=== PATIENT | male | born 1990 | race Caucasian/White ===

== ENCOUNTER 2023-12-28 13:01 | Emergency (ER) | payer OTHER, SELFPAY ==
--- NOTE | ~2023-12-28 | XR_ITS ---
X-RAY LEFT SHOULDER AND LEFT SCAPULA CLINICAL HISTORY: Pain, injury, fall. COMPARISON: No relevant prior studies are available for comparison. TECHNIQUE: 3 views of the left shoulder and one view of the left scapula. FINDINGS: Minimally displaced fracture of the greater tuberosity of the left humeral head with overlying soft tissue swelling and a small joint effusion. No additional fractures. No dislocation. No unexpected radiopaque foreign bodies. XR/XR shoulder LT min 2V IMPRESSION: Minimally displaced fracture of the greater tuberosity of the left humeral head.
--- NOTE | ~2023-12-28 | XR_ITS ---
EXAMINATION: XR ELBOW, LEFT CLINICAL INFORMATION: History of humerus fracture at the shoulder. COMPARISON: No comparison available imaging TECHNIQUE: AP, lateral, and oblique views of the left elbow. FINDINGS: The bones and soft tissues are normal. No fracture or joint effusion. Alignment is anatomic. Joint spaces are maintained. XR/XR elbow LT min 3V IMPRESSION: Normal left elbow.
--- NOTE | ~2023-12-28 | XR_ITS ---
X-RAY LEFT ANKLE AND LEFT FOOT CLINICAL HISTORY: Pain, injury, fall. COMPARISON: No relevant prior studies are available for comparison. TECHNIQUE: 3 views of the left ankle and 3 views of the left foot. FINDINGS: Left ankle: Mildly displaced fracture of the distal fibula/lateral malleolus. Small ossific fragments adjacent to the lateral surface of the talus on the frontal view. Soft tissue swelling. No unexpected radiopaque foreign bodies. Left foot: No fractures or subluxation. No significant soft tissue abnormality. XR/XR foot LT min 3V IMPRESSION: 1. Mildly displaced fracture of the distal fibula/lateral malleolus. 2. Small ossific fragments adjacent to the lateral surface of the talus on the frontal view could represent avulsion fractures. Further characterization with CT of the left ankle without IV contrast could be obtained.
--- NOTE | ~2023-12-28 | XR_ITS ---
X-RAY LEFT SHOULDER AND LEFT SCAPULA CLINICAL HISTORY: Pain, injury, fall. COMPARISON: No relevant prior studies are available for comparison. TECHNIQUE: 3 views of the left shoulder and one view of the left scapula. FINDINGS: Minimally displaced fracture of the greater tuberosity of the left humeral head with overlying soft tissue swelling and a small joint effusion. No additional fractures. No dislocation. No unexpected radiopaque foreign bodies. XR/XR scapula LT IMPRESSION: Minimally displaced fracture of the greater tuberosity of the left humeral head.
--- NOTE | ~2023-12-28 | XR_ITS ---
X-RAY LEFT ANKLE AND LEFT FOOT CLINICAL HISTORY: Pain, injury, fall. COMPARISON: No relevant prior studies are available for comparison. TECHNIQUE: 3 views of the left ankle and 3 views of the left foot. FINDINGS: Left ankle: Mildly displaced fracture of the distal fibula/lateral malleolus. Small ossific fragments adjacent to the lateral surface of the talus on the frontal view. Soft tissue swelling. No unexpected radiopaque foreign bodies. Left foot: No fractures or subluxation. No significant soft tissue abnormality. XR/XR ankle LT min 3V IMPRESSION: 1. Mildly displaced fracture of the distal fibula/lateral malleolus. 2. Small ossific fragments adjacent to the lateral surface of the talus on the frontal view could represent avulsion fractures. Further characterization with CT of the left ankle without IV contrast could be obtained.
--- NOTE | ~2023-12-28 | CT_ITS ---
EXAMINATION: CT CHEST WITH IV CONTRAST CT ABDOMEN AND PELVIS WITH IV CONTRAST CLINICAL INFORMATION: Trauma, fall. COMPARISON: None TECHNIQUE: Multidetector CT imaging examination of the chest, abdomen and pelvis was performed with intravenous administration of 85 mL Omnipaque 350. Axial images are displayed at 0.6 mm and 5 mm slice thickness. Oral contrast not given. Coronal and sagittal reformatted images were generated at the technologist's workstation and submitted for review. This CT examination was performed using dose optimization techniques as appropriate, variously including the following: *Automated exposure control *Adjustment of mA and/or kV according to patient size (this includes techniques or standardized protocols for targeted exams where dose is matched to indication/reason for exam; i.e. extremities or head) *Use of iterative reconstruction technique DLP: 1397 mGy-cm FINDINGS: CHEST - LUNGS AND PLEURA: Trachea and central airways are widely patent and normal in caliber. No pulmonary contusion, pneumothorax or pleural effusion. Small normal-sized lymph nodes are seen along the undersurface of the minor fissure. No suspicious lung nodule. Based on Fleischner Society guidelines, no chest CT imaging follow-up recommended. CARDIOVASCULAR: The heart size is normal. No pericardial effusion. Pulmonary arteries are normal in caliber. Thoracic aorta has normal caliber and contour. No acute aortic injury. No mediastinal hematoma. MEDIASTINUM/LOWER NECK: No evidence of mediastinal mass. The esophagus has normal wall thickness. Thyroid gland is unremarkable. LYMPHATICS: No pathologic sized axillary, hilar or mediastinal lymph nodes. BONES AND THORACIC SOFT TISSUES: Mildly comminuted fracture of the greater tuberosity of the humerus is not significantly displaced. The humeral head is well-positioned over the glenoid. No scapular or clavicular fracture. There appears to be minimal cortical buckling of the left anterolateral sixth rib. No displaced rib fractures. Otherwise, the ribs and sternum are unremarkable. Thoracic vertebra have normal height and alignment. No fractures within the anterior or posterior elements of the thoracic spine. No chest wall hematoma. ABDOMEN AND PELVIS - HEPATOBILIARY: Liver has normal size, contour and attenuation. No liver laceration or perihepatic fluid collection. Gallbladder is unremarkable. No dilatation of bile ducts. PANCREAS: No edema, mass or pancreatic ductal dilatation. SPLEEN: Normal. ADRENAL GLANDS: Normal. KIDNEYS AND URETERS: Kidneys are normal in size and attenuation. No nephrolithiasis, hydronephrosis or perinephric fluid collection. BOWEL AND PERITONEUM: No dilated loops of bowel. The appendix is normal. No overt bowel wall thickening. No mesenteric fat stranding, ascites or pneumoperitoneum. ABDOMINAL WALL: Unremarkable. VESSELS: Abdominal aorta is normal in caliber and its branches are widely patent. No retroperitoneal hematoma. LYMPH NODES: No pathologic sized lymph nodes in the abdomen or pelvis. No inguinal lymphadenopathy. BLADDER: Normal. PELVIC VISCERA: Normal. MUSCULOSKELETAL: The lumbar vertebra have normal height and alignment. The disc spaces are maintained. Pelvic bones and proximal femurs are intact. CT/CT abdomen pelvis w IV con IMPRESSION: * There is a mildly comminuted fractures of the greater tuberosity of the left humerus. * There is likely an acute nondisplaced fracture of the left anterolateral sixth rib. Otherwise, no acute traumatic pathology within the chest, abdomen or pelvis.
--- NOTE | ~2023-12-28 | CT_ITS ---
EXAMINATION: CT ANKLE LEFT WITHOUT IV CONTRAST CT FOOT LEFT WITHOUT IV CONTRAST CLINICAL INFORMATION: Pain after fall. Evaluate for fracture. COMPARISON: Radiographs from 12/28/2023. TECHNIQUE: Noncontrast multidetector CT imaging of the left ankle and left foot is performed. The source images and multiplanar reformatted images are reviewed. This CT examination was performed using dose optimization techniques as appropriate, variously including the following: *Automated exposure control. *Adjustment of mA and/or kV according to patient size (this includes techniques or standardized protocols for targeted exams where dose is matched to indication/reason for exam, i.e., extremities or head). *Use of iterative reconstruction technique. DLP: 211 mGy-cm FINDINGS: LEFT ANKLE: The talar dome is well-positioned within the mortise. The talocrural joint space is maintained. The tibiofibular syndesmotic space is normal. A punctate calcification is seen near the talar attachment of the anterior tibiofibular ligament but it is uncertain whether this is related to a recent or old injury. Tibia is intact. There is no injury at the tibial plafond or medial malleolus. An acute cortical avulsion fracture fragment of the distal lateral fibula is 1.2 cm in length, laterally displaced by approximately 0.3 cm, and corresponds to site of attachment of the superior peroneal retinaculum. There is no associated dislocation of the peroneal tendons. No ankle joint effusion. There is mild edema of subcutaneous tissues of the ankle without focal organized fluid collection. The flexor, extensor, peroneal and tibialis tendons have an intact appearance. No evidence of tenosynovitis. LEFT FOOT: Comminuted, mildly displaced fracture of the lateral talar process, including the portion of the lateral process at the critical angle of Gissane. There are mildly displaced comminuted fragments of the posteroinferior aspect of the medial talar process. Also, small avulsion fracture fragment is seen at the posteromedial process at the margin of the groove for the flexor hallucis longus tendon. Also, there appear to be cortical avulsion fragments within the sinus tarsi near region of talar attachment of the cervical ligament. The calcaneus and other tarsal bones are intact. Alignment is normal at the Chopart and Lisfranc joints. The joint spaces are normal. The metatarsals and phalanges are intact. The soft tissues of the foot are unremarkable. CT/CT ankle LT wo IV con IMPRESSION: * Acute, displaced fracture of the distal lateral fibula in region of fibular attachment of the superior peroneal retinaculum. However, there is no associated dislocation of the peroneal tendons. * Also, there are acute, displaced, comminuted fractures involving the medial and lateral talar processes, and small bone fragments are also seen in the sinus tarsi near region of talar attachment of the cervical ligament. * No injuries along the Chopart and Lisfranc joints.
--- NOTE | ~2023-12-28 | XR_ITS ---
EXAMINATION: XR KNEE, LEFT CLINICAL INFORMATION: Fall. COMPARISON: None available. TECHNIQUE: Two views of the left knee. FINDINGS: No fracture or joint effusion. Alignment is anatomic. Joint spaces are maintained. No abnormal soft tissue calcification. XR/XR knee LT 2V IMPRESSION: Normal left knee.
--- NOTE | ~2023-12-28 | CT_ITS ---
EXAMINATION: CT head/brain wo IV con, CT cervical spine wo IV con INDICATION INFORMATION: pain, injury, fall COMPARISON: Fall from ladder, pain, injury TECHNIQUE: Separate noncontrast CT examinations of the head and cervical spine were performed. Coronal and sagittal images were created for each examination at the technologist workstation. This CT examination was performed using dose optimization techniques as appropriate, variously including the following: *Automated exposure control *Adjustment of mA and/or kV according to patient size (this includes techniques or standardized protocols for targeted exams where dose is matched to indication/reason for exam; i.e. extremities or head) *Use of iterative reconstruction technique DLP: 1391 mGy-cm FINDINGS: Head: No acute osseous or soft tissue abnormality. Mild opacification of the anterior ethmoid air cells. The mastoid air cells and visualized portions of the paranasal sinuses are otherwise well aerated. There is no evidence of acute intracranial hemorrhage or territorial infarction. No abnormal mass effect or midline shift is seen. Nguyen to white matter differentiation is well preserved. No extra-axial fluid collections are identified. No hydrocephalus. No significant volume loss. There is no abnormal attenuation within the brain parenchyma. Cervical spine: There is no evidence of acute cervical spine fracture. Vertebral bodies remain normal in height. Mild reversal of the usual cervical spine lordosis. Disc space heights are maintained. Tiny disc osteophyte complex at C4-C5. No areas of osseous spinal canal narrowing. No pre- or paravertebral soft tissue abnormality is identified. Visualized portions of the lung apices are unremarkable. The thyroid gland is unremarkable. CT/CT cervical spine wo IV con IMPRESSION: No acute or traumatic abnormality of the brain or cervical spine.
[2023-12-28 13:04] VITALS: BP 119/69; PULSE 80; RESP 18; TEMP 36.2; O2SAT 98; BMI 29.3
--- NOTE | 2023-12-28 13:07 | ED_ITS ---
HPI - General Adult General Chief complaint: Fall Stated complaint: L Side Pain Fll From Ladder 8 Ft Time Seen by Provider: 12/28/23 13:14 Source: patient, family (patient's ) and RN notes reviewed Mode of arrival: wheelchair Limitations: no limitations History of Present Illness HPI narrative: Patient is a 33 year old assigned male at with no reported medical history presenting to the emergency department today with left shoulder and left ankle pain after a fall. Patient states that he was on a ladder when the ladder slipped and he fell, landing on his left side. Patient denies hitting his head or any loss of consciousness. Patient denies any dizziness, lightheadedness, abdominal pain, nausea, vomiting, fever, chills, blurry vision, double vision, loss of vision, chest pain, difficulty breathing, shortness of breath, back pain, night sweats, pain with urination, increased urinary frequency, increased urinary urgency, blood in his urine or stool, syncope or a near syncopal episode, bowel incontinence, bladder incontinence, bowel retention, bladder retention, or any other complaints at this time. Onset (ago): minute(s) Location: left, upper extremity and lower extremity Severity: mild Severity scale (1-10): 4 Quality: aching and dull Pain Consistency: constant Relieving factors: immobilization Exacerbating factors: movement Associated symptoms: denies other symptoms Treatments prior to arrival: none Related Data Previous Rx's ?Medication ?Instructions ?Recorded amoxicillin 875 mg-potassium 1 tab PO BID 10 days #20 tabs 12/28/23 clavulanate 125 mg tablet Allergies Allergy/AdvReac Type Severity Reaction Status Date / Time No Known Allergies Allergy Verified 12/28/23 13:09 Review of Systems 2 Constitutional: Constitutional: Reports no additional constitutional complaints, Denies chills, Denies fever(s) and Denies night sweats Eyes: Eyes: Reports no additional eye complaints, Denies blurry vision, Denies change in vision, Denies diplopia, Denies eye discharge, Denies loss of vision and Denies eye pain ENT: Denies dizziness Cardiovascular: Cardiovascular: Reports no additional cardiovascular complaints, Denies chest pain, Denies lightheadedness, Denies Loss of Consciousness and Denies dyspnea Respiratory: Respiratory: Reports no additional respiratory complaints and Denies dyspnea Gastrointestinal: Gastrointestinal: Reports no additional gastrointestinal complaints, Denies abdominal pain, Denies melena, Denies hematochezia, Denies change in bowel habits and Denies change in stool character Genitourinary: Genitourinary: Reports no additional male genitourinary complaints, Denies hematuria, Denies oliguria, Denies difficulty urinating, Denies dysuria, Denies urinary frequency, Denies urinary hesitancy, Denies urinary incontinence and Denies urinary urgency Musculoskeletal: Musculoskeletal: Reports no additional musculoskeletal complaints, Denies numbness and Denies tingling Comments: left shoulder and left ankle pain Neurologic: Denies dizziness, Denies loss of vision, Denies numbness and Denies tingling Psychiatric: Psychiatric: Reports no additional psychiatric complaints Endocrine: Endocrine: Reports no additional endocrine complaints Hematologic/Lymphatic: Hematologic/Lymphatic: Reports no additional hematologic/lymphatic complaints Allergic/Immunologic: Allergic/Immunologic: Reports no additional allergic/immunologic complaints PMFSH Past Medical History Attestation statement: The following information was validated with the patient. (patient's validated all information) Source: old records reviewed, obtained from family (patient's provided additional history and confirmed the history provided by the patient) and nursing notes reviewed Social History Social History Advance Directives: No Advance Directives Information Provided: Yes Do you have a plan to hurt others: No Plan Physical Exam ED Vital Signs: Vital Signs - 24 hr 12/28/23 13:04 12/28/23 15:11 12/28/23 16:50 Temperature 97.2 F 98.2 F 98.1 F Pulse Rate 80 66 68 Respiratory Rate 18 18 18 Blood Pressure 119/69 114/73 116/76 Pulse Oximetry 98 98 98 Oxygen Delivery Method Room Air Room Air BMI result Body Mass Index 29.3 Const General: cooperative, no acute distress, alert and awake Nutritional Appearance: well nourished Orientation/consciousness: patient oriented x3 Limitations: no limitations HENMT Head: Yes normal to inspection and Yes atraumatic Ears: hearing grossly normal bilaterally and external ears normal General nose exam: Normal external nose present, no nasal discharge noted and no epistaxis Face and sinus: Yes normal facial exam, No abrasion and No laceration Mouth: Normal oral and palatal mucosa present, no drooling and no muffled voice Eyes General: appearance normal, both eyes and all related structures Periorbital: periorbital findings normal Eyelids: Yes eyelids normal Conjunctivae: conjunctivae normal Pupils: Equal, round and reactive pupils present EOM: EOMs intact bilaterally Neck Neck: Yes normal visual inspection, Yes full ROM and Yes no lymphadenopathy Chest Chest palpation & inspection: normal inspection of the chest Resp Effort & Inspection: normal respiratory effort and able to speak in complete sentences GI Inspection: Yes normal to inspection Neuro General: patient oriented x3 and moves all extremities Cranial nerves: Yes Equal, round and reactive pupils present Cognition (Neuro): normal cognition Motor exam (neuro): 5/5 motor strength present throughout Sensory Exam: Normal double simultaneous stimulation for sensation Coordination: [id number] test normal Extrem Other: limited ROM of the left ankle and shoulder secondary to pain General: Yes capillary refill normal Psych Appearance: grossly normal Mental Status: mental status grossly normal Affect: normal affect Attitude: cooperative Thought process: Normal thought process present Thought content: Normal thought content present Insight: Good insight present (Psych) Course Course Course Narrative: RME performed by Ingrid Gutierrez PA-C. Patient is a 33 year old assigned male at presenting to the emergency department with left shoulder pain and ankle pain after falling approximately 1 story off of a ladder and landing on his left side. Patient denies any loss of consciousness or head strike. Detailed physical exam and review of systems are deferred to the shipping processor. Imaging ordered. Patient placed back in the waiting room pending room availability and results. Medications Administered Discontinued Medications Generic Name Dose Route Start Last Admin Trade Name Freq PRN Reason Stop Dose Admin Diphtheria/Tetanus/Acell Pertussis 0.5 ml 12/28/23 13:09 12/28/23 14:31 Diphth,Pertus(Acell),Tet Adult 0.5 Ml Syringe IM 12/28/23 13:10 0.5 ml .ONCE ONE Administration Piperacillin Sod/Tazobactam 50 mls @ 100 mls/hr 12/28/23 13:41 12/28/23 14:31 Sod 3.375 gm/ Sodium Chloride IV 12/28/23 14:10 100 mls/hr ONCE ONE Administration Iohexol 85 ml 12/28/23 14:10 12/28/23 14:10 Iohexol 350 Mg/Ml 100 Ml Infus..Btl IV 12/28/23 14:11 85 ml ONCE ONE Administration Morphine Sulfate 4 mg 12/28/23 15:40 12/28/23 15:55 Morphine Sulfate 4 Mg/Ml Cartridge IVPUSH 12/28/23 15:41 4 mg ONCE ONE Administration Protocol Ondansetron HCl 4 mg 12/28/23 15:40 12/28/23 15:58 Ondansetron Hcl 4 Mg/2 Ml Vial IVPUSH 12/28/23 15:41 4 mg ONCE ONE Administration Procedures Orthopedic Splinting/Casting left humerus: Side: left Upper Extremity Injury Location: shoulder and upper arm Upper Extremity Immobilizer: sling/shoulder immobilizer left ankle: Side: left Lower Extremity Injury Location: ankle and foot Lower Extremity Immobilizer: posterior splint and stirrup splint Other Orthopedic Equipment: crutches Medical Decision Making Medical Decision Making MDM Narrative: Patient is a 33 year old assigned male at with no reported medical history presenting to the emergency department today with left shoulder and ankle pain after falling off of a ladder. Patient's physical exam was as noted in the physical exam portion of this note. Patient's blood work showed an elevated WBC count of 15.1 which I believe is secondary to a stress reaction. The rest of the patient's labs were unremarkable. Patient's left ankle and left foot x-rays showed a mildly displaced fracture of the distal fibula/lateral mallelolus and small ossific fragments adjacent to the lateral surface of the talus on the frontal view which could represent avulsion fractures. Patient's left knee x-ray was negative for any acute process. Patient's left scapular and shoulder x-rays showed a minimally displaced fracture of the greater tuberosity of the left humeral head. Patient's head and c-spine CTs showed no acute process. Patient's left elbow x-ray showed no acute process. Patients CT chest and abdomen pelvis showed a left anterolateral sixth rib fracture but were otherwise unremarkable. Patient's left ankle and foot CTs showed acute displaced comminuted fractures involving the medial and lateral talar processes with small bone fragments also seen in the sinus tarsi near the region of the talar attachment of the cervical ligament. I spoke to the orthopedic team who recommended placing the left upper extremity in a sling. Additionally, they recommended placing the left lower extremity in a posterior short leg splint with stirrup. They stated the patient should follow up outpatient. I consulted with Dr. Montelongo to confirm this patient did not need a trauma consult or trauma transfer. Dr. Montelongo agreed with my treatment plan and plan for disposition. I explained my physical exam findings as well as all test results to the patient and the patient's . I answered all questions asked by the patient and the patient's . Patient's left upper extremity was placed in a sling, without incident. Patient's PMS was intact prior to and after sling placement. Patient's left lower extremity was placed in a posterior short leg with stirrup splint, without incident. Patient's PMS was intact prior to and after splint placement. I stressed the importance of the patient taking his medication as prescribed. I stressed the importance of the patient following up with his primary care provider and the orthopedic team. I stressed the importance of the patient returning to the emergency department immediately if his symptoms were to worsen or if he were to develop any dizziness, shortness of breath, difficulty breathing, chest pain, blurry vision, loss of vision, nausea, vomiting, abdominal pain, fever, chills, back pain, or any other complaints. Patient and the patient's verbalized agreement and understanding with this treatment plan and discharge. Differential Diagnosis Differential Diagnoses: The differential diagnosis associated with the presentation includes Shoulder fracture Humerus fracture Ankle fracture Foot fracture Fall Admission/Observation Consideration of admission/observation: Escalation of care including admission/observation considered Patient would have been admitted to the hospital had his work up had any findings where hospital admission was appropriate and his clinical presentation warranted hospital admission. Consult Healthcare Provider Management of the patient was discussed with: Shellfish Shucker (spoke to the orthopedic team as noted in the MDM Rationale portion of this note.) Lab Data [facility] Lab Attestation statement: I reviewed the patient's lab results. My interpretation of these results are in the MDM Rationale portion of this note. 12/28/23 14:27 12/28/23 14:27 Labs: Lab Results 12/28/23 Range/Units 14:27 WBC 15.1 H (4.8-10.8) X10*3/uL RBC 4.75 (4.60-5.80) X10*6/uL Hgb 14.5 (14.0-18.0) g/dl Hct 40.7 L (42.0-52.0) % MCV 85.7 (80.0-98.0) fL MCH 30.5 (27.0-33.0) pg MCHC 35.6 (31.0-36.0) g/dl RDW 12.5 (11.0-16.0) % Plt Count 229 (160-400) X10*3/uL MPV 9.1 L (9.4-12.4) fL Immature Gran % (Auto) 0.5 H (0.0-0.4) % Neut % (Auto) 84.2 H (45-73) % Lymph % (Auto) 7.2 L (20-40) % Moca % (Auto) 6.8 (2-11) % Eos % (Auto) 1.0 (0-4) % Baso % (Auto) 0.3 (0-2) % Lymph # (Auto) 1.1 L (1.2-4.9) X10*3/uL Moca # (Auto) 1.0 (0.1-1.2) X10*3/uL Eos # (Auto) 0.2 (0.0-0.4) X10*3/uL Baso # (Auto) 0.1 (0.0-0.2) X10*3/uL Abs Immat Gran (auto) 0.07 H (0.00-0.03) X10*3/uL Absolute Neuts (auto) 12.7 H (2.0-8.3) x10*3/uL Absolute Nucleated RBC 0.000 (0.0-0.012) X10*3/uL Nucleated RBC % (auto) 0.0 (0.0-0.2) /100WBC PT 11.6 (11.1-13.3) SEC INR 1.0 (0.9-1.1) APTT 28.3 (26.0-36.8) SEC Sodium 138 (135-145) mmol/L Potassium 4.6 (3.3-5.1) mmol/L Chloride 106 (96-108) mmol/L Carbon Dioxide 23 (22-29) mmol/L Anion Gap 14 (12-20) BUN 13 (9-16) mg/dL Creatinine 0.83 (0.5-1.4) mg/dL Estim Creat Clear Calc 146.3 Estimated GFR > 60 Random Glucose 95 (60-115) mg/dL Calcium 9.4 (8.4-10.2) mg/dL Magnesium 1.9 (1.6-2.6) mg/dL Total Bilirubin 0.4 (0.0-1.0) mg/dL AST 16 (5-37) U/L ALT 12 (0-40) U/L Alkaline Phosphatase 53 (39-117) U/L Total Protein 7.0 (6.5-8.0) g/dL Albumin 4.4 (3.5-5.0) g/dL Lipase 27 (8-78) U/L Independent Interpretation I performed an independent interpretation of an: Plain X-Ray and CT Scan Interpretation: My interpretation is in agreement with the radiologist's impression of these imaging studies. - X-RAY LEFT ANKLE AND LEFT FOOT CLINICAL HISTORY: Pain, injury, fall. COMPARISON: No relevant prior studies are available for comparison. TECHNIQUE: 3 views of the left ankle and 3 views of the left foot. FINDINGS: Left ankle: Mildly displaced fracture of the distal fibula/lateral malleolus. Small ossific fragments adjacent to the lateral surface of the talus on the frontal view. Soft tissue swelling. No unexpected radiopaque foreign bodies. Left foot: No fractures or subluxation. No significant soft tissue abnormality. XR/XR ankle LT min 3V IMPRESSION: 1. Mildly displaced fracture of the distal fibula/lateral malleolus. 2. Small ossific fragments adjacent to the lateral surface of the talus on the frontal view could represent avulsion fractures. Further characterization with CT of the left ankle without IV contrast could be obtained. Dictated By: Jalyn Ash Signed By: Electronically signed by Jalyn Ash 12/28/23 1358 - EXAMINATION: XR KNEE, LEFT CLINICAL INFORMATION: Fall. COMPARISON: None available. TECHNIQUE: Two views of the left knee. FINDINGS: No fracture or joint effusion. Alignment is anatomic. Joint spaces are maintained. No abnormal soft tissue calcification. XR/XR knee LT 2V IMPRESSION: Normal left knee. Dictated By: Jalyn Ash Signed By: Electronically signed by Jalyn Ash 12/28/23 1353 - X-RAY LEFT SHOULDER AND LEFT SCAPULA CLINICAL HISTORY: Pain, injury, fall. COMPARISON: No relevant prior studies are available for comparison. TECHNIQUE: 3 views of the left shoulder and one view of the left scapula. FINDINGS: Minimally displaced fracture of the greater tuberosity of the left humeral head with overlying soft tissue swelling and a small joint effusion. No additional fractures. No dislocation. No unexpected radiopaque foreign bodies. XR/XR scapula LT IMPRESSION: Minimally displaced fracture of the greater tuberosity of the left humeral head. Dictated By: Jalyn Ash Signed By: Electronically signed by Jalyn Ash 12/28/23 1355 - EXAMINATION: CT head/brain wo IV con, CT cervical spine wo IV con INDICATION INFORMATION: pain, injury, fall COMPARISON: Fall from ladder, pain, injury TECHNIQUE: Separate noncontrast CT examinations of the head and cervical spine were performed. Coronal and sagittal images were created for each examination at the technologist workstation. This CT examination was performed using dose optimization techniques as appropriate, variously including the following: *Automated exposure control *Adjustment of mA and/or kV according to patient size (this includes techniques or standardized protocols for targeted exams where dose is matched to indication/reason for exam; i.e. extremities or head) *Use of iterative reconstruction technique DLP: 1391 mGy-cm FINDINGS: Head: No acute osseous or soft tissue abnormality. Mild opacification of the anterior ethmoid air cells. The mastoid air cells and visualized portions of the paranasal sinuses are otherwise well aerated. There is no evidence of acute intracranial hemorrhage or territorial infarction. No abnormal mass effect or midline shift is seen. Nguyen to white matter differentiation is well preserved. No extra-axial fluid collections are identified. No hydrocephalus. No significant volume loss. There is no abnormal attenuation within the brain parenchyma. Cervical spine: There is no evidence of acute cervical spine fracture. Vertebral bodies remain normal in height. Mild reversal of the usual cervical spine lordosis. Disc space heights are maintained. Tiny disc osteophyte complex at C4-C5. No areas of osseous spinal canal narrowing. No pre- or paravertebral soft tissue abnormality is identified. Visualized portions of the lung apices are unremarkable. The thyroid gland is unremarkable. CT/CT head/brain wo IV con IMPRESSION: No acute or traumatic abnormality of the brain or cervical spine. Dictated By: Francisco Javier Gomez MD Signed By: Electronically signed by Francisco Javier Gomez MD 12/28/23 1505 - EXAMINATION: XR ELBOW, LEFT CLINICAL INFORMATION: History of humerus fracture at the shoulder. COMPARISON: No comparison available imaging TECHNIQUE: AP, lateral, and oblique views of the left elbow. FINDINGS: The bones and soft tissues are normal. No fracture or joint effusion. Alignment is anatomic. Joint spaces are maintained. XR/XR elbow LT min 3V IMPRESSION: Normal left elbow. Dictated By: Hernan Pryor MD Signed By: Electronically signed by Hernan Pryor MD 12/28/23 1502 - EXAMINATION: CT CHEST WITH IV CONTRAST CT ABDOMEN AND PELVIS WITH IV CONTRAST CLINICAL INFORMATION: Trauma, fall. COMPARISON: None TECHNIQUE: Multidetector CT imaging examination of the chest, abdomen and pelvis was performed with intravenous administration of 85 mL Omnipaque 350. Axial images are displayed at 0.6 mm and 5 mm slice thickness. Oral contrast not given. Coronal and sagittal reformatted images were generated at the technologist's workstation and submitted for review. This CT examination was performed using dose optimization techniques as appropriate, variously including the following: *Automated exposure control *Adjustment of mA and/or kV according to patient size (this includes techniques or standardized protocols for targeted exams where dose is matched to indication/reason for exam; i.e. extremities or head) *Use of iterative reconstruction technique DLP: 1397 mGy-cm FINDINGS: CHEST - LUNGS AND PLEURA: Trachea and central airways are widely patent and normal in caliber. No pulmonary contusion, pneumothorax or pleural effusion. Small normal-sized lymph nodes are seen along the undersurface of the minor fissure. No suspicious lung nodule. Based on Fleischner Society guidelines, no chest CT imaging follow-up recommended. CARDIOVASCULAR: The heart size is normal. No pericardial effusion. Pulmonary arteries are normal in caliber. Thoracic aorta has normal caliber and contour. No acute aortic injury. No mediastinal hematoma. MEDIASTINUM/LOWER NECK: No evidence of mediastinal mass. The esophagus has normal wall thickness. Thyroid gland is unremarkable. LYMPHATICS: No pathologic sized axillary, hilar or mediastinal lymph nodes. BONES AND THORACIC SOFT TISSUES: Mildly comminuted fracture of the greater tuberosity of the humerus is not significantly displaced. The humeral head is well-positioned over the glenoid. No scapular or clavicular fracture. There appears to be minimal cortical buckling of the left anterolateral sixth rib. No displaced rib fractures. Otherwise, the ribs and sternum are unremarkable. Thoracic vertebra have normal height and alignment. No fractures within the anterior or posterior elements of the thoracic spine. No chest wall hematoma. ABDOMEN AND PELVIS - HEPATOBILIARY: Liver has normal size, contour and attenuation. No liver laceration or perihepatic fluid collection. Gallbladder is unremarkable. No dilatation of bile ducts. PANCREAS: No edema, mass or pancreatic ductal dilatation. SPLEEN: Normal. ADRENAL GLANDS: Normal. KIDNEYS AND URETERS: Kidneys are normal in size and attenuation. No nephrolithiasis, hydronephrosis or perinephric fluid collection. BOWEL AND PERITONEUM: No dilated loops of bowel. The appendix is normal. No overt bowel wall thickening. No mesenteric fat stranding, ascites or pneumoperitoneum. ABDOMINAL WALL: Unremarkable. VESSELS: Abdominal aorta is normal in caliber and its branches are widely patent. No retroperitoneal hematoma. LYMPH NODES: No pathologic sized lymph nodes in the abdomen or pelvis. No inguinal lymphadenopathy. BLADDER: Normal. PELVIC VISCERA: Normal. MUSCULOSKELETAL: The lumbar vertebra have normal height and alignment. The disc spaces are maintained. Pelvic bones and proximal femurs are intact. CT/CT abdomen pelvis w IV con IMPRESSION: * There is a mildly comminuted fractures of the greater tuberosity of the left humerus. * There is likely an acute nondisplaced fracture of the left anterolateral sixth rib. Otherwise, no acute traumatic pathology within the chest, abdomen or pelvis. Dictated By: Hernan Pryor MD Signed By: Electronically signed by Hernan Pryor MD 12/28/23 1519 - EXAMINATION: CT ANKLE LEFT WITHOUT IV CONTRAST CT FOOT LEFT WITHOUT IV CONTRAST CLINICAL INFORMATION: Pain after fall. Evaluate for fracture. COMPARISON: Radiographs from 12/28/2023. TECHNIQUE: Noncontrast multidetector CT imaging of the left ankle and left foot is performed. The source images and multiplanar reformatted images are reviewed. This CT examination was performed using dose optimization techniques as appropriate, variously including the following: *Automated exposure control. *Adjustment of mA and/or kV according to patient size (this includes techniques or standardized protocols for targeted exams where dose is matched to indication/reason for exam, i.e., extremities or head). *Use of iterative reconstruction technique. DLP: 211 mGy-cm FINDINGS: LEFT ANKLE: The talar dome is well-positioned within the mortise. The talocrural joint space is maintained. The tibiofibular syndesmotic space is normal. A punctate calcification is seen near the talar attachment of the anterior tibiofibular ligament but it is uncertain whether this is related to a recent or old injury. Tibia is intact. There is no injury at the tibial plafond or medial malleolus. An acute cortical avulsion fracture fragment of the distal lateral fibula is 1.2 cm in length, laterally displaced by approximately 0.3 cm, and corresponds to site of attachment of the superior peroneal retinaculum. There is no associated dislocation of the peroneal tendons. No ankle joint effusion. There is mild edema of subcutaneous tissues of the ankle without focal organized fluid collection. The flexor, extensor, peroneal and tibialis tendons have an intact appearance. No evidence of tenosynovitis. LEFT FOOT: Comminuted, mildly displaced fracture of the lateral talar process, including the portion of the lateral process at the critical angle of Gissane. There are mildly displaced comminuted fragments of the posteroinferior aspect of the medial talar process. Also, small avulsion fracture fragment is seen at the posteromedial process at the margin of the groove for the flexor hallucis longus tendon. Also, there appear to be cortical avulsion fragments within the sinus tarsi near region of talar attachment of the cervical ligament. The calcaneus and other tarsal bones are intact. Alignment is normal at the Chopart and Lisfranc joints. The joint spaces are normal. The metatarsals and phalanges are intact. The soft tissues of the foot are unremarkable. CT/CT ankle LT wo IV con IMPRESSION: * Acute, displaced fracture of the distal lateral fibula in region of fibular attachment of the superior peroneal retinaculum. However, there is no associated dislocation of the peroneal tendons. * Also, there are acute, displaced, comminuted fractures involving the medial and lateral talar processes, and small bone fragments are also seen in the sinus tarsi near region of talar attachment of the cervical ligament. * No injuries along the Chopart and Lisfranc joints. Dictated By: Hernan Pryor MD Signed By: Electronically signed by Hernan Pryor MD 12/28/23 0274 Radiology Impression Discussion of test interpretation with radiology: I have reviewed the radiologist's reading. Independent Historian Clinical information obtained from an independent historian. History obtained from or confirmed by: Spouse (patient provided additional history and confirmed the history provided by the patient.) Prescription Management I considered prescription management with: Antibiotic (patient has an abrasion on the injury right lower extremity, prophylactic antibiotic prescribed) Critical Care Time Critical Care Time Critical Care Time: Yes Total Critical Care Time: 148 Attestation: I spent 148 minutes of Critical Care Time with this patient. This does not include time spent on separately reported billable procedures. Discharge Plan Discharge Clinical Impression: Fracture, humerus, Ankle fracture, Fracture of rib Patient Disposition: Home, Self-Care Instructions: Ankle Fracture (DC), Arm Fracture in Adults (ED), Rib Fracture (ED), How to Use a Sling (ED) Additional Instructions: Follow up with your primary care provider and an orthopedic provider. Take your antibiotic as prescribed. Your left lower leg splint is to remain on until you are seen by the orthopedic team. If you find that your left toes begin to change color or sensation - you may loosen the AICHA wraps. If you find yourself loosening the AICHA wrap to the point where you are seeing the splint material, return to the ER immediately. Do NOT get the splint wet. At least once per hour, make sure to extend your left elbow. Return to the emergency department immediately if your symptoms worsen or if you develop any dizziness, shortness of breath, difficulty breathing, chest pain, blurry vision, loss of vision, nausea, vomiting, abdominal pain, fever, chills, back pain, or any other complaints. Prescriptions: New amoxicillin-pot clavulanate 875-125 mg tablet 1 tab PO BID 10 Days Qty: 20 0RF Referrals: [facility] [Provider Group] (Call to establish and follow up with an orthopedic provider.) Catracho Queen DO [Primary Care Provider] - Stand Alone Forms: Work/School Release Interventions: ED Discharge Assessment Last Done: 12/28/23 16:50 Discharge Date/Time: 12/28/23 16:52 Print Language: German
[2023-12-28] MEDS: iohexoL 350 MG/ML 100 ML INFUS..BTL 85 ML IV (14:10)
[2023-12-28] MEDS: Piperacillin Sodium/Tazobactam 3.375 GM in 0.9 % Sodium Chloride 50 ML IV (14:31)
[2023-12-28] MEDS: Diphth,Pertus(ACell),Tet Adult 0.5 ML SYRINGE IM (14:31)
[2023-12-28 14:32] LABS: MANUAL DIFF FLAG NO
[2023-12-28 14:33] LABS: Basophils Absolute Auto 0.1 X10*3/uL (0.0-0.2); Basophils Percent Auto 0.3 % (0-2); Eosinophils Absolute Auto 0.2 X10*3/uL (0.0-0.4); Hematocrit 40.7 % (42.0-52.0); Hemoglobin 14.5 g/dl (14.0-18.0); Imm Gran Abs Auto 0.07 X10*3/uL (0.00-0.03); Imm Gran Pct Auto 0.5 % (0.0-0.4); Lymphocytes Absolute Auto 1.1 X10*3/uL (1.2-4.9); Lymphocytes Percent Auto 7.2 % (20-40); Mean Corpuscular HGB Conc 35.6 g/dl (31.0-36.0); Mean Corpuscular Hemoglobin 30.5 pg (27.0-33.0); Mean Corpuscular Volume 85.7 fL (80.0-98.0); Mean Platelet Volume 9.1 fL (9.4-12.4); Monocytes Percent Auto 6.8 % (2-11); Neutrophils Absolute Auto 12.7 x10*3/uL (2.0-8.3); Neutrophils Percent Auto 84.2 % (45-73); Platelet Count 229 X10*3/uL (160-400); Red Blood Count 4.75 X10*6/uL (4.60-5.80); Red Cell Distribution Width 12.5 % (11.0-16.0); White Blood Count 15.1 X10*3/uL (4.8-10.8)
[2023-12-28 14:40] LABS: Prothrombin Time 11.6 SEC (11.1-13.3)
[2023-12-28 14:43] LABS: Partial Thromboplastin Time 28.3 SEC (26.0-36.8)
[2023-12-28 14:48] LABS: Alanine Aminotransferase 12 U/L (0-40); Albumin Level 4.4 g/dL (3.5-5.0); Alkaline Phosphatase 53 U/L (39-117); Anion Gap 14 (12-20); Aspartate Amino Transferase 16 U/L (5-37); Bilirubin Total 0.4 mg/dL (0.0-1.0); Blood Urea Nitrogen 13 mg/dL (9-16); Calcium 9.4 mg/dL (8.4-10.2); Carbon Dioxide 23 mmol/L (22-29); Chloride 106 mmol/L (96-108); Creatinine Clr Calc Pharmacy 146.3; Estimated Glomerular Filt Rate > 60; Glucose Random 95 mg/dL (60-115); Lipase 27 U/L (8-78); Magnesium 1.9 mg/dL (1.6-2.6); Potassium 4.6 mmol/L (3.3-5.1); Sodium 138 mmol/L (135-145)
[2023-12-28 15:11] VITALS: BP 114/73; PULSE 66; RESP 18; TEMP 36.8; O2SAT 98
[2023-12-28] MEDS: Morphine Sulfate 4 MG/ML CARTRIDGE IVPUSH (15:55)
[2023-12-28] MEDS: ondansetron HCL 4 MG/2 ML VIAL IVPUSH (15:58)
[2023-12-28 16:50] VITALS: BP 116/76; PULSE 68; RESP 18; TEMP 36.7; O2SAT 98
== END 2023-12-28 16:52 | disposition home or self-care (01) ==
PROVIDERS: Physician Assistant Medical; Emergency Provider Student in an Organized Health Care Education/Training Program; PCP Family Medicine
DX: S82.62XA Displaced fracture of lateral malleolus of left fibula, initial encounter for closed fracture (principal); S42.252A Displaced fracture of greater tuberosity of left humerus, initial encounter for closed fracture; S22.32XA Fracture of one rib, left side, initial encounter for closed fracture; S90.511A Abrasion, right ankle, initial encounter; W11.XXXA Fall on and from ladder, initial encounter; Y93.9 Activity, unspecified; Y92.9 Unspecified place or not applicable; Y99.9 Unspecified external cause status; Z23 Encounter for immunization
CPT/HCPCS: 29515; 36415; 70450; 71260; 72125; 73010; 73030; 73080; 73560; 73610; 73630; 73700; 74177; 80053; 83690; 83735; 85025; 85610; 85730; 90471; 90715; 96374; 96375; 99283; 99284; J2270; J2405; J2543; Q9967

== ENCOUNTER 2024-01-25 09:09 | Emergency (ER) | payer OTHER, SELFPAY ==
--- NOTE | ~2024-01-25 | XR_ITS ---
Examination: Right ankle and right foot COMPARISON: None CLINICAL INFORMATION: Pain following fall TECHNIQUE: 3 views of right ankle and 3 views of right foot FINDINGS: 3 views of right foot demonstrate well-mineralized bones without evidence of fractures or subluxation. Soft tissues unremarkable. 3 views of right ankle reveal soft tissue swelling laterally not associated with fractures. XR/XR foot RT 2V IMPRESSION: No fracture seen in right foot or ankle
--- NOTE | ~2024-01-25 | XR_ITS ---
Examination: Right ankle and right foot COMPARISON: None CLINICAL INFORMATION: Pain following fall TECHNIQUE: 3 views of right ankle and 3 views of right foot FINDINGS: 3 views of right foot demonstrate well-mineralized bones without evidence of fractures or subluxation. Soft tissues unremarkable. 3 views of right ankle reveal soft tissue swelling laterally not associated with fractures. XR/XR ankle RT 2V IMPRESSION: No fracture seen in right foot or ankle
[2024-01-25 09:15] VITALS: BP 128/76; PULSE 95; RESP 16; TEMP 36.9; O2SAT 97; BMI 30.1
[2024-01-25 10:00] VITALS: BP 125/70; PULSE 91; TEMP 36.8; O2SAT 97
--- NOTE | 2024-01-25 10:58 | ED_ITS ---
HPI - General Adult General Chief complaint: Extremity Injury, Lower Stated complaint: Ankle injury Time Seen by Provider: 01/25/24 10:44 Source: patient Mode of arrival: wheelchair Limitations: no limitations History of Present Illness HPI narrative: Patient a 33-year-old presents to the emergency department for evaluation. He currently has a left humerus fracture and left ankle fracture from a fall last month, he had surgery to the left ankle 2 weeks ago. Currently he is mobile with a knee scooter but at times he is using a single crutch to the right arm and placing all his weight on the right foot. Last night, he lost his balance while using a single crutch resulting in a fall landing on his right foot. He felt as though the bottom of the splint to his left foot had fractured from the fall. He currently endorses pain primarily to the mid lateral right foot over the dorsum, increases with weight-bearing. He denies any pain to the left foot. He denies any numbness or tingling to the extremities. He denies any head strike or loss of consciousness with fall. Related Data Previous Rx's ?Medication ?Instructions ?Recorded amoxicillin 875 mg-potassium 1 tab PO BID 10 days #20 tabs 12/28/23 clavulanate 125 mg tablet Allergies Allergy/AdvReac Type Severity Reaction Status Date / Time No Known Allergies Allergy Verified 01/25/24 09:15 Review of Systems Review of Systems: Yes all other systems are reviewed and are negative [facility] Past Medical History Attestation statement: The following information was validated with the patient. Source: old records reviewed Social History Social History Advance Directives: No Advance Directives Information Provided: Yes Do you have a plan to hurt others: No Plan Physical Exam ED Vital Signs: Vital Signs - 24 hr 01/25/24 09:15 01/25/24 10:00 Temperature 98.4 F 98.3 F Pulse Rate 95 91 Respiratory Rate 16 Blood Pressure 128/76 125/70 Pulse Oximetry 97 97 Oxygen Delivery Method Room Air Room Air BMI result Body Mass Index 30.1 Appearance: Alert.?Oriented to person, place and time. No acute distress.?Normal affect. Eyes: Pupils equal, round and reactive to light.? ENT: Pharynx normal.?? Neck: Normal inspection.? Neck supple.?? CVS: Heart sounds normal. Normal heart rate and rhythm.? Pulses normal.?? Respiratory: No respiratory distress.? Lung sounds clear to auscultation bilaterally?? Abdomen: Soft and non-tender. Normoactive bowel sounds. Skin: Skin warm and dry.? Normal skin color.? Extremities: Left lower extremity with posterior and stirrup splint, CMS intact distally. Right ankle with decreased AROM, point tenderness over the proximal lateral mid foot, 2+ DP/PT pulse. No calf ttp? Neuro: Moves all extremities spontaneously. Sensation intact bilaterally. Course Reevaluation(s) Reevaluation #1: Posterior leg splint along the plantar aspect of the foot on the left was fractured from the fall. Resplinted with posterior short-leg and stirrup splint with ankle at 90 degrees. See procedural portion of this note. extremity remained neurovascularly distally application. Patient was able to be mobile with use of his knee scooter on the left, able to propel himself even with the walking boot on the right. Feels comfortable with plan of care for discharge home and outpatient follow-up with orthopedics accordingly. Procedures Orthopedic Splinting/Casting Injury #1: Side: left Lower Extremity Immobilizer: posterior splint and stirrup splint Medical Decision Making Medical Decision Making MDM Narrative: Patient is a 33-year-old male who presents emergency department for evaluation of right pain after mechanical fall as per HPI. Right lower extremity is neurovascularly intact distally at the time of this evaluation with point tenderness over the mid proximal lateral foot. He was seen in this emergency department 12/28/2023, he had a fall from a ladder with resultant distal fibula /lateral malleolus fracture for which he underwent ORIF with new inguinal Orthopedics 2 weeks ago, does not recall the exact date; He has a follow-up appointment scheduled for 01/30/2024 for suture room full and determination at that time for re-splinting and weight-bearing status currently he is nonweightbearing to the left. From his fall on 12/28/2023 he also sustained a displaced fracture of the left humeral head for which he has not undergone any surgical repair. Differential Diagnosis Differential Diagnoses: The differential diagnosis associated with the presentation includes ( Fracture, dislocation, sprain) Admission/Observation Consideration of admission/observation: Escalation of care including admission/observation considered Consult Healthcare Provider Management of the patient was discussed with: Window Glazier Helper consulted with Orthopedics, Jessie CAMARGO, agrees with plan of care for short leg walking boot to the right foot. Independent Interpretation I performed an independent interpretation of an: Plain X-Ray ( see narrative below) Radiology Impression Discussion of test interpretation with radiology: I discussed test interpretation with the radiologist and I have reviewed the radiologist's reading. Radiologist Impression: I spoke with radiologist Dr. Rice, upon personal review of XR imaging concern for osseous fragment seen one view the right foot XR, concern for possible overall monroe fracture versus cuboid fracture. Advised by Radiology this is a normal variant sesamoid bone, not acute fracture, this area does correspond with point tenderness. Independent Historian Clinical information obtained from an independent historian. History obtained from or confirmed by: Spouse Discharge Plan Discharge Clinical Impression: Ankle sprain Qualifiers: Encounter type: initial encounter Laterality: right Patient Disposition: Home, Self-Care Instructions: Ankle Sprain (DC), R.I.C.E. Treatment (ED) Additional Instructions: as discussed, x-ray imaging physical exam today is most concerning for a sprain to the right ankle /proximal midfoot. You were provided with a x-ray disc from your imaging today. Use the walking boot as provided for any weight-bearing to the right foot. apply ice for 10-15 minutes 3-4 times daily, elevate your legs above the level of your chest when possible. Remain nonweightbearing on the left as previously advised until you follow-up with orthopedics this week. You may return back to emergency department any new or worsening symptoms or concerns. Prescriptions: No Action amoxicillin-pot clavulanate 875-125 mg tablet 1 tab PO BID 10 Days Qty: 20 0RF Referrals: Catracho Queen DO [Primary Care Provider] - Print Language: French
[2024-01-25 13:52] VITALS: BP 127/64; PULSE 87; TEMP 36.6; O2SAT 99
[2024-01-25 14:10] VITALS: BP 127/64; PULSE 87; RESP 17; TEMP 36.6; O2SAT 99
== END 2024-01-25 14:10 | disposition home or self-care (01) ==
PROVIDERS: Emergency Provider Emergency Medicine; PCP Family Medicine
DX: S93.401A Sprain of unspecified ligament of right ankle, initial encounter (principal); S82.892D Other fracture of left lower leg, subsequent encounter for closed fracture with routine healing; W19.XXXA Unspecified fall, initial encounter; Y93.9 Activity, unspecified; Y92.9 Unspecified place or not applicable; Y99.9 Unspecified external cause status
CPT/HCPCS: 29515; 73600; 73620; 99283